=== PATIENT | male | born 1985 | race Caucasian/White ===

== ENCOUNTER 2022-04-22 12:16 | Emergency (ER) | payer OTHER ==
[~2022-04-22] VITALS: Ht 180 cm; Wt 140.0 kg
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
[2022-04-22] MEDS ORDERED: PRD20T PO (13:06)
[2022-04-22] MEDS ORDERED: HYDR-3924 PO (13:06)
[2022-04-22] MEDS ORDERED: SULF5DRO OP (13:07)
[2022-04-22 13:29] VITALS: BP 140/102
== END 2022-04-22 13:30 | disposition home or self-care (01) ==
LOC: ER FS 12:20
DX: L25.5 Unspecified contact dermatitis due to plants, except food (principal); F17.210 Nicotine dependence, cigarettes, uncomplicated
CPT/HCPCS: 99284